=== PATIENT | female | born 1930 | race Caucasian/White ===

== ENCOUNTER 2017-05-12 13:46 | Inpatient (IN) | payer MEDICARE, OTHER ==
--- NOTE | ~2017-05-12 | CN ---
Consultation Report [facility] [address] [place]. [address] NAME: QASIM ARREOLA APRIL : 30 STATUS : ADM IN [facility]#: [id number] AGE: 86 ADM/REG DATE : 05/13/17 MR#: [id number] REPORT SERV DATE: 05/13/17 DICTATED BY: AWAIS PARKER DATE: 05/13/17 REPORT STATUS : Draft TRANSCRIBED BY: MODL DATE: 05/13/17 CARDIOLOGY CONSULTATION DATE OF CONSULTATION: 05/13/2017 REASON FOR CONSULTATION: Sinus bradycardia and congestive heart failure. HISTORY OF PRESENT ILLNESS: Ms. Arreola is an 86-year-old patient, resident of [facility], who presents with complaints of altered mental status. She has a known history of a dilated cardiomyopathy, ejection fraction of approximately 35%. She had a dual chamber ICD placed in the past, but the both the generator and leads were extracted due to a Staph aureus infection. She apparently had problems with confusion over the last 24 hours. She has been admitted over the last few months with many other medical problems including failure to thrive. On her initial assessment in the emergency room, there was question about urinary tract infection as well as some congestive heart failure on her exam in chest x-ray. Her BNP was 693. She received IV Lasix in the emergency room. She was also noted to have rather severe hyponatremia with a sodium of 122. PAST MEDICAL HISTORY: 1. Notable for a dilated cardiomyopathy, ejection fraction approximately 35%. 2. History of an ICD, status post extraction of both the device and the leads secondary to infection with MRSA. 3. Some underlying dementia. CURRENT MEDICINES: Aspirin, Valium, Prozac, levothyroxine, Altace, Requip, tramadol. FAMILY HISTORY: Negative for premature coronary artery disease or sudden cardiac . SOCIAL HISTORY: Negative tobacco or alcohol. REVIEW OF SYSTEMS: As noted above. All other systems reviewed and negative. PHYSICAL EXAMINATION: VITAL SIGNS: Blood pressure currently of 126/64, pulse is 50, respirations 16, O2 saturation 98% on 2 L. GENERAL: Well developed, well nourished. HEENT: No icterus. Good dentition. NECK: Supple. No masses or thyromegaly LUNGS: Breathing comfortably. No rales or wheezes. COR: Normal S1, S2. No S3 or S4. No murmurs, clicks, rubs. No JVD ABD: Soft, nondistended, nontender, no hepatosplenomegaly. EXT: No clubbing, cyanosis or edema. Peripheral pulses 2+/=bilaterally. SKIN: Warm and dry. No visible lesions. Consultation Report [facility] [address] [place] [place] [id number] NAME: QASIM ARREOLA APRIL : 30 STATUS : ADM IN [facility]#: [id number] AGE: 86 ADM/REG DATE : 05/13/17 MR#: [id number] REPORT SERV DATE: 05/13/17 DICTATED BY: AWAIS PARKER DATE: 05/13/17 REPORT STATUS : Draft TRANSCRIBED BY: OLGA DATE: 05/13/17 MS: Chest wall without deformity, no obvious clavicular fractures. NEURO/PSYCH: Oriented X3. No anxiety or depression. IMAGING PROCEDURE: EKG shows sinus rhythm and sinus bradycardia, heart rate 50 beats per minute. First-degree AV block with MO interval of approximately 400 milliseconds. QRS and QT intervals within normal limits. No evidence for ischemia or infarction. LABORATORY VALUES: White count is 9.1, hematocrit 37, platelet count 158. Sodium of 122, potassium 5.3, creatinine is 0.54. Urine was tested, white blood cells in the urine are greater than 182, large leukocyte esterase, positive. BNP was 693. Chest x-ray shows mild pulmonary vascular congestion, very enlarged cardiac silhouette. IMPRESSION: The patient likely has multiple reasons for change in mental status. These may include severe urinary tract infection along with hyponatremia. We should also check thyroid function studies given that she is on medications for hypothyroidism and she does have underlying sinus bradycardia. Heart rate is approximately 50 beats per minute and also evidence for conduction system disease with a profound first-degree AV block. She has already had a defibrillator, which was infected. I would be concerned about reimplantation of a pacing system at this point in time especially given urinary tract infection as well as her underlying comorbidities. If absolutely necessary, we could consider this. In terms of treating hyponatremia, I would recommend fluid restriction. She was given a dose of diuretic in the emergency room and we will give her further intravenous loop diuretic doses. We could also consider use of a collecting duct inhibitor to give more free water excretion and raise sodium. We will repeat her BMP tomorrow after she has received these IV diuretic doses and recheck the level of hyponatremia. GS/MODL Awais Parker M.D. / [id number] CC: Jody Duggan M.D.
--- NOTE | ~2017-05-12 | DS ---
Discharge Summary [facility] [address] [place]. [address] NAME: QASIM ARREOLA APRIL : 30 STATUS : DIS IN PAT#: [id number] AGE: 86 ADM/REG DATE : 05/13/17 MR#: [id number] REPORT SERV DATE: 06/02/17 DICTATED BY: NORMA TILLMAN DATE: 06/01/17 REPORT STATUS : Draft TRANSCRIBED BY: OLGA DATE: 06/01/17 Data Collection from hospitalization DISCHARGE DIAGNOSES: 1. Proteus mirabilis urinary tract infection. 2. Hyponatremia - likely chronic. 3. Congestive heart failure - systolic. 4. Bradycardia - mild. 5. Debility with generalized weakness. 6. Hypothyroidism. 7. Chronic pain syndrome - left shoulder pain. 8. Type 2 diabetes. 9. Hypertension. 10.History of transient ischemic attack. 11.Cardiomegaly with ejection fraction 35%. 12.Osteoarthritis. 13.History of defibrillator placement, status post removal. 14.Anxiety and depression. 15.Failure to thrive. 16.Anemia secondary to chronic disease. CONSULTATIONS: Grupo Kidd M.D. PROCEDURES PERFORMED: None. DISCHARGE MEDICATIONS: Aspirin 81 mg daily, Tradjenta 5 mg daily, Os-Noah plus D 500 mg at bedtime, vitamin D3 at 2000 units on Mondays and , Colace 100 mg twice a day, ferrous sulfate 325 mg twice a day, Prozac 10 mg daily, Lasix 40 mg daily, Synthroid 100 mcg before breakfast/75 mcg before breakfast, Cytomel 5 mcg twice a day, multivitamins one tablet daily, Prilosec 20 mg twice a day, MiraLAX powder one packet daily, potassium chloride SR 20 mEq daily, Altace 2.5 mg every 48 hours, Requip 0.5 mg at bedtime, acidophilus one tablet daily, Ultram 50 mg every 8 hours as needed, Valium 2 mg every four hours as needed, Tylenol 650 mg every six hours as needed, and Biofreeze 1 application topically three times a day as needed. CONDITION ON DISCHARGE: Stable. DISPOSITION: The patient was discharged to [facility] on a low- sodium diet with 1500-mL fluid restriction and activities as instructed. HOSPITAL COURSE: This is an 86-year-old female who is a resident of [facility]. She was transferred to the [facility] Emergency Room with complaints of low sodium, low heart rate, generalized weakness, altered mental status, and poor appetite. She was very weak but was able to answer simple questions. She did fall asleep easily. The patient had had progressive weakness over the past two to three weeks. She was admitted to the hospital at this time for further evaluation and treatment. Upon admission, chest x-ray had revealed cardiomegaly, shallow inspiration, no acute Discharge Summary [place] [id number] [place] [address] NAME: QASIM ARREOLA APRIL : 30 STATUS : DIS IN PAT#: [id number] AGE: 86 ADM/REG DATE : 05/13/17 MR#: [id number] REPORT SERV DATE: 06/02/17 DICTATED BY: NORMA TILLMAN DATE: 06/01/17 REPORT STATUS : Draft TRANSCRIBED BY: OLGA DATE: 06/01/17 cardiopulmonary abnormality. Repeat chest x-ray revealed interval development of band-like atelectasis extending from the right hilum and atelectasis/infiltrate and/or pleural effusion at the lung bases. She was felt to have pyuria. IV Rocephin was continued. Her urinalysis was positive. Urine culture was pending. Admission white blood cell count was within normal limits. Scheduled tramadol would be held if this was contributing to her weakness. It was felt that her altered mental status and generalized weakness were likely multifactorial. Admission BNP was elevated. We would avoid overdiuresis. Potassium improved. Electrolyte protocol was initiated. Protonix was continued. Lovenox was started for DVT prophylaxis. TSH was going to be checked. The patient was seen by Dr. Grupo Kidd regarding sinus bradycardia and congestive heart failure. She had rather severe hyponatremia with sodium level of 122. She has a history of dilated cardiomyopathy with ejection fraction of approximately 35%. She has had a dual-chamber ICD placed in the past, but the generator and leads were extracted due to Staph aureus infection. EKG revealed sinus rhythm and sinus bradycardia. Heart rate was 50 beats per minute. There was a first- degree AV block with NM interval of approximately 400 milliseconds. QRS and QT intervals were within normal limits. There was no evidence for ischemia or infarction. Chest x-ray showed mild pulmonary vascular congestion and very enlarged cardiac silhouette. It was felt that the patient likely had multiple reasons for change in mental status. These would include severe urinary tract infection along with hyponatremia. Thyroid function studies would be checked. She does have underlying sinus bradycardia. Her heart rate was approximately 50 beats per minute and also there was evidence for conduction system disease with profound first-degree AV block. There would be concern about reimplantation of the pacing system at this point in time especially given the urinary tract infection as well as her underlying comorbidities. If absolutely necessary, we could consider this. Fluid restriction was recommended due to her hyponatremia. She was given a dose of diuretic in the emergency room. She would be given further intravenous loop diuretic doses. We would also consider use of a collecting duct inhibitor to give more free water excretion and raise sodium. A repeat BMP would be obtained the following day after she received IV diuretic doses and after we have rechecked the level of hyponatremia. The following day, she looked better. She still felt weak. Her lungs were clear. Sodium and fluid restriction continued as well as IV diuresis. The patient's urine culture was positive for Proteus. DVT prophylaxis continued. IV Bumex was continued. On 05/15/2017, labs were stable. Her lungs were clear. She had a normal respiratory effort. Rocephin was continued. She had no nausea or vomiting. She did not have much of an appetite. She did have some leg cramping. She had no edema. A trial of tolvaptan was going to be provided. Ramipril was continued. Beta-ania was held. On 05/16/2017, she did complain of leg cramps after lunch for most of the day. She had no edema. Diuresis was decreased with Bumex. A dose of tolvaptan was given. Bradycardia had resolved. Beta-ania remained on hold. Her appetite was poor. We were going to try low-dose steroids. On 05/17/2017, she was feeling better. Her lungs were clear. She had no edema. Her congestive heart failure was improving. Her mental status seemed to be improving as well. IV diuresis continued. She was evaluated by Physical Therapy. She continued to progress. Discharge planning was performed. She was eating better. Sodium level was now 129. A dose of Zaroxolyn was given, diuresis continued. On 05/19/2017, she had no new complaints. Her lungs remained clear. Her sodium level was drifting back down, she was asymptomatic. This had occurred despite adequate diuresis and fluid restriction. IV Bumex was stopped. Lasix Discharge Summary [place] [address] [place]. [address] NAME: QASIM ARREOLA APRIL : 30 STATUS : DIS IN PAT#: [id number] AGE: 86 ADM/REG DATE : 05/13/17 MR#: [id number] REPORT SERV DATE: 06/02/17 DICTATED BY: NORMA TILLMAN DATE: 06/01/17 REPORT STATUS : Draft TRANSCRIBED BY: OLGA DATE: 06/01/17 was started. KCl was being given. A pacemaker was not recommended at this time. She did have a bowel movement. Discharge instructions had been given. Due to her improved and stable condition, she was discharged to [facility] with the above-stated instructions. Information collected by: Olya Lawrence I submit the above information as my discharge summary. TG/OLGA Norma Tillman M.D. / [id number] CC: Jody Perry M.D. [facility]
--- NOTE | ~2017-05-12 | HP ---
History And Physical [address] [place]. [address] NAME: QASIM ARREOLA APRIL : 30 STATUS : ADM IN [facility]#: [id number] AGE: 86 ADM/REG DATE : 05/13/17 MR#: [id number] REPORT SERV DATE: 05/13/17 DICTATED BY: NORMA TILLMAN DATE: 05/13/17 REPORT STATUS : Draft TRANSCRIBED BY: MODRonnie DATE: 05/13/17 DATE OF ADMISSION: 05/12/2017 CHIEF COMPLAINT: Low heart rate, low sodium, generalized weakness, and altered mental status. HISTORY OF PRESENT ILLNESS: The patient is an 86-year-old elderly female, who is a resident of [facility], who was transferred to [facility] ER for complaint of low sodium, low heart rate, generalized weakness, altered mental status, and poor appetite. The patient is very weak, able to answer simple question, but easily falls asleep; therefore, most information obtained from the patient's daughter, who is at bedside to answer question regarding family, social, and medical history. Also, reviewed records in [facility] ER as well as inpatient hospitalization records in 11/2016. The patient's daughter reports the patient noted to have had progressive weakness in the last two to three weeks. ALLERGIES: SULFA. CODE STATUS: Full code. PAST MEDICAL HISTORY: To include: 1. History of TIA. 2. Hypertension. 3. Cardiomegaly with EF of 35%/systolic congestive heart failure. 4. Osteoarthritis. 5. Hypothyroidism. 6. Type 2 diabetes. 7. Bacteremia with MRSA infection. 8. Defibrillator, which was subsequently removed. 9. Left hip replacement with infected hardware. 10.Generalized weakness/debility. 11.Anxiety and depression. 12.Failure to thrive. 13.Anemia secondary to chronic disease. PAST SURGICAL HISTORY: 1. Bilateral hip replacement by Dr. Rivero at age 80, two years apart secondary to fall. 2. Right knee replacement. 3. Defibrillator placement around 2001 and subsequently removed in 2013 secondary to MRSA infection. 4. Cervical laminectomy on 12/02/[address] Tran. SOCIAL HISTORY: No history of smoking, alcohol, or illicit drug use. 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 She is currently a resident of [facility] History And Physical [address] [place]. [address] NAME: QASIM ARREOLA APRIL : 30 STATUS : ADM IN PAT#: [id number] AGE: 86 ADM/REG DATE : 05/13/17 MR#: [id number] REPORT SERV DATE: 05/13/17 DICTATED BY: NORMA TILLMAN DATE: 05/13/17 REPORT STATUS : Draft TRANSCRIBED BY: OLGA DATE: 05/13/17 since 02/2017. Prior to that, she was a resident of [facility] since December. FAMILY HISTORY: Positive for hypertension and congestive heart failure. REVIEW OF SYSTEMS: The patient denies any complaint of swallowing or hearing. Has had generalized weakness. Complained of overall weakness and poor appetite. No complaint of irregular beat or chest pain. Has had slow heart rate in the last two weeks per daughter. The patient is an established patient of Dr. Nayak, but has not seen Dr. Nayak in the last year. The patient's daughter reports had canceled the appointment with Dr. Nayak and has not rescheduled. Has had a history of congestive heart failure. Had defibrillator placed, but was removed for infection in 2013 and was not replaced. The patient with likely history of constipation. Daughter reports that MiraLax scheduled was added recently at [facility]. The patient denies any nausea or vomiting. The patient is incontinent with urine. Denies any pain or burning when urinates. Daughter thinks that the patient has had a UTI recently. The patient's daughter reports the patient was ambulating some with a walker while at [facility], but at [place], she was only able to stand up and has not walked with worsening weakness. The patient with history of hypothyroidism. The patient's daughter reports that the patient's thyroid in the last two weeks had been increased and decreased at [place], but unsure of last thyroid level. The patient with history of anxiety and depression. Has had history of TIA in the past. The patient remains on a daily aspirin. History of diabetes, was on oral agent, but continued to be on regular diet. PHYSICAL EXAMINATION: VITAL SIGNS: 149/65; temperature of 96.8; heart rate of 48, range of 45 to 52; respiratory rate 18; sat O2 of 99% with nasal cannula. Weight of 59.87 kg, BMI of 22.7. I's and O's of 480/2000. GENERAL: The patient is an elderly female, very lethargic, but arousable and able to answer simple question. She is oriented to self and place, in no acute distress noted. HEENT: Oral mucosa, nasal cannula in use. Eyes, PERRL, nonicteric bilaterally. NECK: No pain on palpation. Moves neck without any pain. Limited range of motion on extension. CHEST: No deformity noted. LUNGS: Clear to auscultation bilaterally with symmetric expansion, but diminished breath sounds in bilateral lower bases. CV: Bradycardic. No murmurs noted. ABDOMEN: Soft and nontender. Bowel sounds x4 quadrants. : Sepulveda in use, clear yellow urine in bag with good urine output. History And Physical [address] [place]. [address] NAME: QASIM ARREOLA APRIL : 30 STATUS : ADM IN [facility]#: [id number] AGE: 86 ADM/REG DATE : 05/13/17 MR#: [id number] REPORT SERV DATE: 05/13/17 DICTATED BY: NORMA TILLMAN DATE: 05/13/17 REPORT STATUS : Draft TRANSCRIBED BY: OLGA DATE: 05/13/17 EXTREMITIES: No edema noted. Noted limited bilateral upper and lower extremity range of motion due to generalized weakness and generalized muscle atrophy. 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 Noted arthritic changes. Noted hyperpigmentation and old ecchymosis on bilateral lower extremity and bilateral upper extremity. Gait not assessed. LABORATORY STUDY: Troponin 0.03 on admission and 0.03 at 0625 hours today. BNP on admission was 1750.9, a repeat this morning was 1619.0. Sodium on 05/12 was 122, potassium 5.3, chloride 88, CO2 of 30, BUN 19, creatinine 0.54, glucose of 107, GFR of 85. WBC 9.1, hemoglobin 10.9, hematocrit 32.7. PT 16.2, INR 1.3, PTT 31.2. Platelet of 158. Magnesium of 1.8. AST 18, bilirubin 0.5, total protein 5.6, ALT 25, albumin 3.1, alkaline phosphatase 100. Repeat BMP this morning was with sodium 125, potassium 4.2, chloride 87, CO2 of 31, BUN 18, creatinine of 0.59, glucose of 80, GFR of 83. Chest x-ray on admission on 05/12/2017, cardiomegaly, shallow inspiration, no acute cardiopulmonary abnormality. A repeat of chest x-ray on 05/13/2017 revealed interval development of band-like atelectasis extending from right hilum and atelectasis/infiltrate and/or pleural effusion on lung base. IMPRESSION: 1. Pyuria. 2. Altered mental status. 3. Systolic congestive heart failure with acute exacerbation. 4. Electrolyte imbalance. 5. Bradycardia, sinus with first-degree AV block. 6. Generalized weakness. 7. Failure to thrive. 8. Hypothyroidism. 9. Hypertension, primary, controlled. 10.Anxiety and depression. 11.Osteoarthritis. PLAN: 1. We will continue Rocephin IV, which was started in the ER for treatment of possible UTI with urinalysis positive. Urine culture pending at this time, we will continue to follow. Admission WBC was within normal limits. We will repeat labs in a.m. and monitor vital signs. The patient is currently hemodynamically stable, but at risk for sepsis. The patient's Sepulveda was placed in the ER on admission. We will continue Sepulveda at this time to monitor urine output. 2. The patient with altered mental status, likely more due to generalized weakness. She is oriented to self and place. We will hold off scheduled tramadol if this is contributing to her weakness. Likely, her altered mental status and generalized weakness are multifactorial. We will continue to monitor mental status. The patient is at risk for worsening neuro status. 3. The patient with history of systolic congestive heart failure with last echocardiogram done while on admission in 11/2016 revealed EF of 35%. Her admission BNP is elevated, slightly improved this morning to 1619 with Lasix given IV q.12 hours. We will continue to monitor BNP and weight, avoid overdiuresing. However, given the patient's failure to thrive and poor p.o. intake, we will allow the patient to have boost for protein supplement. We will consult Cardiology for assistance given the patient also History And Physical [address] [place] [place]. [address] NAME: QASIM ARREOLA APRIL : 30 STATUS : ADM IN PAT#: [id number] AGE: 86 ADM/REG DATE : 05/13/17 MR#: [id number] REPORT SERV DATE: 05/13/17 DICTATED BY: NORMA TILLMAN DATE: 05/13/17 REPORT STATUS : Draft TRANSCRIBED BY: OLGA DATE: 05/13/17 with bradycardia contributing a lot to the patient's generalized weakness. The patient is at risk for worsening acute exacerbation and arrhythmia. We will continue IV Lasix at this time. The patient's potassium has improved. We will replace magnesium and monitor labs in a.m. We will initiate electrolyte protocol. The patient is at risk for worsening cardiac arrhythmia. 4. Once the patient's cardiac issue has stabilized, we will refer the patient to PT for evaluation and treatment. Continue frequent positional changes. Continue current Protonix via p.o. and place on DVT prophylaxis with Lovenox. The patient is at risk for GI stress ulcer, DVT, and further skin breakdown. 5. The patient with history of thyroidism with daughter reporting recent adjustment on replacement. We will check TSH in a.m. to see if this is contributing to the patient's generalized weakness, altered mental status, and arrhythmia. The patient is at risk for worsening arrhythmia and generalized weakness. 6. We will continue current bowel regimen given the history of constipation and monitor BM. The patient is at risk for bowel obstruction given decreased mobility and polypharmacy. 7. Addressed code status with the patient's daughter, who desires the patient to remain a full code. Transfer POLST form in chart. We will ensure to complete inpatient POLST form. We will place the patient on inpatient status as of today given inpatient risk of deterioration. DICTATED BY: Charissa Rudolph NP CLP/MODL Norma Tillman M.D. / [id number] CC: Jody Duggan M.D.
[~2017-05-12 13:46] MED LIST: ACCUNEB INH; ACET500CAP PO; ALTA125 PO; ALTA2.5 PO; ALTA5 PO; ALTACE PO; AMARYL1 MG PO; APRES25 PO; ASAB PO; AT25; AT25 PO; ATARAX50B PO; BUM1 PO; CALTRA600D; CALTRAT600 PO; CENTRUM TAB1 TAB PO; CO Q-10100 MG PO; COQ10100 MG OR; COQ10100 MG PO; COREG12 PO; COREG3 PO; COREG6 PO; CYTO5 PO; DEMA10T PO; DEMA20 PO; DEMADEX5 MG PO; DORYX100 MG PO; EZFE 200200 MG PO; FERREX 150150 MG PO; FISH-EPA1000 MG PO; FLORASTOR250 MG PO; FOSAMAX70 MG PO; HALF81 PO; HUMALOG SC; INSTA-GLUCOSE GEL PO; IRON325 MG PO; ISOPTINSR PO; JANUVIA100 MG PO; JANUVIA50 PO; K-TABS10 MEQ PO; KLOR-CON 1010 MEQ PO; KLOR-CON M2020 MEQ PO; L40 PO; LEVOTHYROXIN100 MCG PO; LEVOTHYROXIN88 MCG PO; LOVENOX40 SC; MIRALAXPKT PO; MULTIPLE VIT PO; NORCO1 TA1 PO; OS500+D PO; PEP20 PO; PRAVACHOL40 MG PO; PREMARIN PO; PRILO PO; PROVENTSOL INH; PROZ10 PO; SENTAB PO; SPIRO50 PO; SYN.025B PO; SYN88 PO; T PO; THERGRANM PO; TRADJENTA5 MG PO; V120 PO; VANCO1P IV; VITAMIN D1000 UNI1 PO; VITAMIN D31000 UNIT PO; VITAMIN E; [UNRECOGNIZED DRUG - CODE] PO
[2017-05-12 15:17] LABS: BASOPHILS 0.2 %; BASOPHILS ABSOLUTE 0.02 10/3/uL (0.0-0.16); EOSINOPHILS 2.7 %; EOSINOPHILS ABSOLUTE 0.24 10/3/uL (0.0-0.53); ER CBC TAT 0 Hrs 03 Mins; HEMATOCRIT 32.7 % (36.0-48.0); HEMOGLOBIN 10.9 g/dL (12.0-16.0); IMMATURE GRANULOCYTES 0.2 %; IMMATURE GRANULOCYTES ABSOLUTE 0.02 10/3/uL (0.0-0.11); LYMPHOCYTES 6.5 %; LYMPHOCYTES ABSOLUTE 0.59 10/3/uL (0.67-4.30); MANUAL DIFF NO %; MEAN CORPUS HGB CONC 33.3 g/dL (32.0-36.0); MEAN CORPUSCULAR HEMOGLOB 29.2 pg (26.0-34.0); MEAN CORPUSCULAR VOLUME 87.7 fL (80-100); MEAN PLATELET VOLUME 8.6 fL (9.2-13.0); MONOCYTES 7.4 %; MONOCYTES ABSOLUTE 0.67 10/3/uL (0.21-1.20); NEUTROPHILS ABSOLUTE 7.51 10/3/uL (2.02-8.40); PLATELET COUNT 158 10/3/uL (150-400); RBC DISTRIBUTION WIDTH 16.9 % (12.0-16.0); RED CELL COUNT 3.73 10/6/uL (4.0-5.6); WHITE BLOOD CELLS 9.1 10/3/uL (4.5-10.5)
[2017-05-12 15:27] LABS: INTERNATIONAL NORMAL RATI 1.3 UNITS (-); PARTIAL THROMBO TIME 31.2 SEC (22.5-37.2); PROTIME (NOT ORD) 16.2 SEC (12.0-14.5)
[2017-05-12 15:36] LABS: BUN (BLOOD UREA NITROGEN) 19 MG/DL (6-23); CALCIUM, SERUM 8.6 MG/DL (8.5-10.4); CHEST PAIN PROFILE TAT 0 Hrs 22 Mins; CHLORIDE, SERUM 88 MMOL/L (96-112); CO2 (CARBON DIOXIDE) 30 MMOL/L (24-34); CREATININE 0.54 MG/DL (0.55-1.02); GFR AFRICAN AMERICAN 99 ML/MIN (>=60); GFR NON AFRICAN AMERICAN 85 ML/MIN (>=60); GLUCOSE, SERUM 107 MG/DL (60-99); MYOGLOBIN, SERUM 47 NG/ML (0-85); POTASSIUM, SERUM 5.3 MMOL/L (3.5-5.3); SODIUM, SERUM 122 MMOL/L (135-148); TROPONIN I 0.03 NG/ML (<0.05)
[2017-05-12 16:23] LABS: FOLATE 7.5 NG/ML (>5.2); IRON BINDING CAPACITY 245 MCG/DL (225-410); IRON, SERUM 38 MCG/DL (35-150)
[2017-05-12 16:39] LABS: ASCORBIC ACID (UR NOT ORDER) NEG (NEG); BILIRUBIN, URINE NEGATIVE (NEG); ER URINALYSIS TAT 0 Hrs 12 Mins; KETONE, URINE NEGATIVE (NEG); LEUKOCYTE ESTERASE(NOT OR LARGE (NEG)
[2017-05-12 16:40] LABS: NITRITE (URINE) POS (NEG); WBC (NOT ORDERED) (RFLEX) > 182 (0-5)
[2017-05-12] MEDS ORDERED: PRILO PO (17:19)
[2017-05-12] MEDS ORDERED: REQUIP5 PO (17:20)
[2017-05-12] MEDS ORDERED: OS500+D PO (17:22)
[2017-05-12] MEDS ORDERED: ULTRAM50 PO ×2 (17:23→17:38)
[2017-05-12] MEDS ORDERED: LEVOTHYROXIN150 MCG PO (17:23)
[2017-05-12] MEDS ORDERED: CYTO5 PO (17:24)
[2017-05-12] MEDS ORDERED: DSS PO (17:24)
[2017-05-12] MEDS ORDERED: FERROUS SULF325 M1 PO (17:26)
[2017-05-12] MEDS ORDERED: ASAB PO (17:27)
[2017-05-12] MEDS ORDERED: SODCLTAB PO (17:27)
[2017-05-12] MEDS ORDERED: MULTIVITAMI1 PO (17:28)
[2017-05-12] MEDS ORDERED: VITAMIN D31000 UNIT PO (17:28)
[2017-05-12] MEDS ORDERED: ALTA2.5 PO (17:29)
[2017-05-12] MEDS ORDERED: ACIDOPHILU2 PO (17:30)
[2017-05-12] MEDS ORDERED: MIRALAX POWDER1 PKT PO (17:34)
[2017-05-12] MEDS ORDERED: TRADJENTA5 MG PO (17:34)
[2017-05-12] MEDS ORDERED: PROZ10 PO (17:35)
[2017-05-12] MEDS ORDERED: 8 HOUR650 MG PO (17:37)
[2017-05-12] MEDS ORDERED: V2 PO (17:37)
[2017-05-12] MEDS ORDERED: BIOFREEZE GEL TOP (17:39)
[2017-05-13 07:16] LABS: A/G RATIO 1.2 (0.7-1.9); ALBUMIN 3.1 G/DL (3.5-5.0); ALKALINE PHOSPHATASE 100 U/L (45-117); BUN (BLOOD UREA NITROGEN) 18 MG/DL (6-23); CALCIUM, SERUM 8.4 MG/DL (8.5-10.4); CHLORIDE, SERUM 87 MMOL/L (96-112); CK-MB 2.1 NG/ML; CO2 (CARBON DIOXIDE) 31 MMOL/L (24-34); CPK 32 U/L (0-200); CREATININE 0.59 MG/DL (0.55-1.02); GFR AFRICAN AMERICAN 96 ML/MIN (>=60); GFR NON AFRICAN AMERICAN 83 ML/MIN (>=60); GLOBULIN 2.5 G/DL (2.5-4.1); GLUCOSE, SERUM 80 MG/DL (60-99); POTASSIUM, SERUM 4.2 MMOL/L (3.5-5.3); SGOT(AST) 18 U/L (5-40); SGPT(ALT) 25 U/L (5-65); SODIUM, SERUM 125 MMOL/L (135-148); TOTAL BILIRUBIN 0.5 MG/DL (0-1.2); TOTAL PROTEIN 5.6 G/DL (6.0-8.5); TROPONIN I 0.03 NG/ML (<0.05)
[2017-05-14 05:25] LABS: BASOPHILS ABSOLUTE 0.05 10/3/uL (0.0-0.16); EOSINOPHILS 5.6 %; EOSINOPHILS ABSOLUTE 0.28 10/3/uL (0.0-0.53); HEMATOCRIT 30.5 % (36.0-48.0); HEMOGLOBIN 10.3 g/dL (12.0-16.0); IMMATURE GRANULOCYTES 0.4 %; IMMATURE GRANULOCYTES ABSOLUTE 0.02 10/3/uL (0.0-0.11); LYMPHOCYTES 15.4 %; LYMPHOCYTES ABSOLUTE 0.77 10/3/uL (0.67-4.30); MEAN CORPUS HGB CONC 33.8 g/dL (32.0-36.0); MEAN CORPUSCULAR HEMOGLOB 29.3 pg (26.0-34.0); MEAN CORPUSCULAR VOLUME 86.9 fL (80-100); MEAN PLATELET VOLUME 8.5 fL (9.2-13.0); MONOCYTES 10.4 %; MONOCYTES ABSOLUTE 0.52 10/3/uL (0.21-1.20); NEUTROPHILS 67.2 %; NEUTROPHILS ABSOLUTE 3.35 10/3/uL (2.02-8.40); PLATELET COUNT 144 10/3/uL (150-400); RBC DISTRIBUTION WIDTH 16.4 % (12.0-16.0); RED CELL COUNT 3.51 10/6/uL (4.0-5.6)
[2017-05-14 05:32] LABS: MANUAL DIFF NO %
[2017-05-14 05:49] LABS: BUN (BLOOD UREA NITROGEN) 15 MG/DL (6-23); CALCIUM, SERUM 7.9 MG/DL (8.5-10.4); CHLORIDE, SERUM 85 MMOL/L (96-112); CO2 (CARBON DIOXIDE) 33 MMOL/L (24-34); CREATININE 0.65 MG/DL (0.55-1.02); GFR AFRICAN AMERICAN 93 ML/MIN (>=60); GFR NON AFRICAN AMERICAN 80 ML/MIN (>=60); GLUCOSE, SERUM 82 MG/DL (60-99); POTASSIUM, SERUM 3.6 MMOL/L (3.5-5.3); PREALBUMIN 11.5 MG/DL (17.0-43.0); SODIUM, SERUM 124 MMOL/L (135-148)
[2017-05-14 05:50] LABS: PHOSPHORUS, SERUM 3.7 MG/DL (2.5-4.5)
[2017-05-15 05:36] LABS: BUN (BLOOD UREA NITROGEN) 15 MG/DL (6-23); CALCIUM, SERUM 8.4 MG/DL (8.5-10.4); CHLORIDE, SERUM 83 MMOL/L (96-112); CO2 (CARBON DIOXIDE) 35 MMOL/L (24-34); CREATININE 0.69 MG/DL (0.55-1.02); GFR AFRICAN AMERICAN 91 ML/MIN (>=60); GFR NON AFRICAN AMERICAN 79 ML/MIN (>=60); GLUCOSE, SERUM 96 MG/DL (60-99); POTASSIUM, SERUM 3.9 MMOL/L (3.5-5.3); SODIUM, SERUM 124 MMOL/L (135-148)
[2017-05-16 05:47] LABS: BUN (BLOOD UREA NITROGEN) 12 MG/DL (6-23); CALCIUM, SERUM 9.7 MG/DL (8.5-10.4); CHLORIDE, SERUM 88 MMOL/L (96-112); CO2 (CARBON DIOXIDE) 35 MMOL/L (24-34); CREATININE 0.62 MG/DL (0.55-1.02); GFR AFRICAN AMERICAN 95 ML/MIN (>=60); GFR NON AFRICAN AMERICAN 82 ML/MIN (>=60); GLUCOSE, SERUM 97 MG/DL (60-99); POTASSIUM, SERUM 4.3 MMOL/L (3.5-5.3); SODIUM, SERUM 132 MMOL/L (135-148)
[2017-05-17 07:21] LABS: BUN (BLOOD UREA NITROGEN) 12 MG/DL (6-23); CALCIUM, SERUM 9.9 MG/DL (8.5-10.4); CHLORIDE, SERUM 89 MMOL/L (96-112); CO2 (CARBON DIOXIDE) 38 MMOL/L (24-34); CREATININE 0.68 MG/DL (0.55-1.02); GFR AFRICAN AMERICAN 92 ML/MIN (>=60); GFR NON AFRICAN AMERICAN 79 ML/MIN (>=60); GLUCOSE, SERUM 100 MG/DL (60-99); POTASSIUM, SERUM 4.5 MMOL/L (3.5-5.3); SODIUM, SERUM 133 MMOL/L (135-148)
[2017-05-18 04:18] LABS: BASOPHILS 0.7 %; BASOPHILS ABSOLUTE 0.04 10/3/uL (0.0-0.16); EOSINOPHILS 6.2 %; EOSINOPHILS ABSOLUTE 0.36 10/3/uL (0.0-0.53); HEMOGLOBIN 11.3 g/dL (12.0-16.0); IMMATURE GRANULOCYTES 0.3 %; IMMATURE GRANULOCYTES ABSOLUTE 0.02 10/3/uL (0.0-0.11); LYMPHOCYTES 16.4 %; LYMPHOCYTES ABSOLUTE 0.96 10/3/uL (0.67-4.30); MEAN CORPUSCULAR HEMOGLOB 29.1 pg (26.0-34.0); MEAN PLATELET VOLUME 8.4 fL (9.2-13.0); MONOCYTES 10.3 %; NEUTROPHILS 66.1 %; NEUTROPHILS ABSOLUTE 3.86 10/3/uL (2.02-8.40); PLATELET COUNT 139 10/3/uL (150-400); RBC DISTRIBUTION WIDTH 16.3 % (12.0-16.0); RED CELL COUNT 3.88 10/6/uL (4.0-5.6); WHITE BLOOD CELLS 5.8 10/3/uL (4.5-10.5)
[2017-05-18 04:19] LABS: HEMATOCRIT 35.4 % (36.0-48.0); MANUAL DIFF NO %; MEAN CORPUS HGB CONC 31.9 g/dL (32.0-36.0); MEAN CORPUSCULAR VOLUME 91.2 fL (80-100)
[2017-05-18 04:32] LABS: ALBUMIN 3.2 G/DL (3.5-5.0); CALCIUM, SERUM 9.3 MG/DL (8.5-10.4); CHLORIDE, SERUM 88 MMOL/L (96-112); CO2 (CARBON DIOXIDE) 37 MMOL/L (24-34); CREATININE 0.72 MG/DL (0.55-1.02); GFR AFRICAN AMERICAN 88 ML/MIN (>=60); GFR NON AFRICAN AMERICAN 76 ML/MIN (>=60); GLUCOSE, SERUM 109 MG/DL (60-99); PHOSPHORUS, SERUM 3.4 MG/DL (2.5-4.5); POTASSIUM, SERUM 4.7 MMOL/L (3.5-5.3); SODIUM, SERUM 129 MMOL/L (135-148)
[2017-05-18 04:35] LABS: BUN (BLOOD UREA NITROGEN) 19 MG/DL (6-23)
[2017-05-19 05:07] LABS: BUN (BLOOD UREA NITROGEN) 18 MG/DL (6-23); CALCIUM, SERUM 9.2 MG/DL (8.5-10.4); CHLORIDE, SERUM 83 MMOL/L (96-112); CO2 (CARBON DIOXIDE) 35 MMOL/L (24-34); CREATININE 0.53 MG/DL (0.55-1.02); GFR AFRICAN AMERICAN 100 ML/MIN (>=60); GFR NON AFRICAN AMERICAN 86 ML/MIN (>=60); GLUCOSE, SERUM 110 MG/DL (60-99); SODIUM, SERUM 125 MMOL/L (135-148)
== END 2017-05-19 18:01 | DRG 291 ==
LOC: ER 13:46 → 7NO 18:45
PROVIDERS: Emergency Medicine; Family Medicine; Internal Medicine; Internal Medicine Cardiovascular Disease; Nurse Practitioner Family
DX: I11.0 Hypertensive heart disease with heart failure (principal); G93.41 Metabolic encephalopathy; I42.0 Dilated cardiomyopathy; F03.90 Unspecified dementia, unspecified severity, without behavioral disturbance, psychotic disturbance, mood disturbance, and anxiety; N39.0 Urinary tract infection, site not specified; E87.1 Hypo-osmolality and hyponatremia; E44.1 Mild protein-calorie malnutrition; E11.9 Type 2 diabetes mellitus without complications; B96.4 Proteus (mirabilis) (morganii) as the cause of diseases classified elsewhere; I50.23 Acute on chronic systolic (congestive) heart failure; I44.0 Atrioventricular block, first degree; G89.4 Chronic pain syndrome; R32 Unspecified urinary incontinence; R00.1 Bradycardia, unspecified; R62.7 Adult failure to thrive; E03.9 Hypothyroidism, unspecified; M19.90 Unspecified osteoarthritis, unspecified site; D63.8 Anemia in other chronic diseases classified elsewhere; F41.9 Anxiety disorder, unspecified; K59.00 Constipation, unspecified; F32.9 Major depressive disorder, single episode, unspecified; Z96.643 Presence of artificial hip joint, bilateral; Z86.73 Personal history of transient ischemic attack (TIA), and cerebral infarction without residual deficits; Z87.440 Personal history of urinary (tract) infections; Z86.14 Personal history of Methicillin resistant Staphylococcus aureus infection; Z79.84 Long term (current) use of oral hypoglycemic drugs
CPT/HCPCS: 71010; 73030-LT; 80048; 80053; 80069; 81001; 82550; 82553; 82746; 82962; 83540; 83550; 83735; 83874; 83880; 84100; 84134; 84443; 84484; 85025; 85610; 85730; 87040; 87077; 87086; 87186; 93005; 97163-GP; 99285; A9270-GY; G8978-CL-GP; G8979-CJ-GP; J3475

== ENCOUNTER 2017-08-16 05:30 | Inpatient (IN) | payer MEDICARE, OTHER ==
[~2017-08-16] VITALS: Ht 162.6 cm; Wt 61.7 kg
--- NOTE | ~2017-08-16 | EGD ---
EGD REPORT [facility] [address] [address] NAME: ABI ARREOLA APRIL : 30 STATUS : DIS IN PAT#: [id number] AGE: 87 ADM/REG DATE : 08/16/17 MR#: [id number] REPORT SERV DATE: 08/20/17 DICTATED BY: LYLE AMBROSE DATE: 08/20/17 REPORT STATUS : Draft [facility]ANSCRIBED BY: [facility] DATE: 08/20/17 Endoscopy Center Patient Name: Abi Arreola April Date of : 1930 Attending MD: LYLE AMBROSE MD Procedure Date No Time: 08/17/2017 Procedure: Upper GI endoscopy Indications: Acute post hemorrhagic anemia, Anemia, Melena Medicines: Monitored Anesthesia Care Complications: No immediate complications. Procedure: Pre-Anesthesia Assessment: - ASA Grade Assessment: IV - A patient with severe systemic disease that is a constant threat to life. After obtaining informed consent, the endoscope was passed under direct vision. Throughout the procedure, the patient's blood pressure, pulse, and oxygen saturations were monitored continuously. The GIF [id number] was introduced through the mouth, and advanced to the third part of duodenum. The upper GI endoscopy was accomplished without difficulty. The patient tolerated the procedure well. Findings: The nasopharynx was normal. LA Grade A (one or more mucosal breaks less than 5 mm, not extending between tops of 2 mucosal folds) esophagitis with no bleeding was found at the gastroesophageal junction. Two medium-sized angioectasias with no bleeding were found in the stomach. Coagulation for destruction of remaining portion of lesion using argon plasma at 0.8 liters/minute and 20 shaw was successful. Estimated blood loss was minimal. A single small angioectasia without bleeding was found in the second part of the duodenum. Coagulation for destruction of remaining portion of lesion using argon plasma at 0.5 liters/minute and 20 shaw was successful. Impression: - Normal nasopharynx. - LA Grade A reflux esophagitis. - Two non-bleeding angioectasias in the stomach. Treated with thermal therapy. - A single non-bleeding angioectasia in the duodenum. Treated with thermal therapy. Procedure Code(s): --- Professional --- 60736, Esophagogastroduodenoscopy, flexible, transoral; EGD REPORT [address] [address] NAME: ABI ARREOLA APRIL : 30 STATUS : DIS IN PAT#: [id number] AGE: 87 ADM/REG DATE : 08/16/17 MR#: [id number] REPORT SERV DATE: 08/20/17 DICTATED BY: LYLE AMBROSE DATE: 08/20/17 REPORT STATUS : Draft TRANSCRIBED BY: [facility] DATE: 08/20/17 with ablation of tumor(s), polyp(s), or other lesion(s) (includes pre- and post-dilation and guide wire passage, when performed) Diagnosis Code(s): --- Professional --- K21.0, Gastro-esophageal reflux disease with esophagitis K31.819, Angiodysplasia of stomach and duodenum without bleeding D62, Acute posthemorrhagic anemia D64.9, Anemia, unspecified K92.1, Melena CPT copyright 2013 [employer]. All rights reserved. The codes documented in this report are preliminary and upon geological technical officer review may be revised to meet current compliance requirements. LYLE AMBROSE MD 08/17/2017 5:53 PM This report has been signed electronically. Number of Addenda: 0 Note Initiated On: 08/17/2017 5:21 PM Scope Withdrawal Time 0 hours 0 minutes 0 seconds [address] [place] [place] [address]
--- NOTE | ~2017-08-16 | CN ---
Consultation Report [facility] [address] [facility] [address] [address] NAME: QASIM ARREOLA APRIL : 30 STATUS : ADM IN [facility]#: [id number] AGE: 87 ADM/REG DATE : 08/16/17 MR#: [id number] REPORT SERV DATE: 08/17/17 DICTATED BY: KHOI AMBROSE DATE: 08/17/17 REPORT STATUS : Draft TRANSCRIBED BY: MODL DATE: 08/17/17 CONSULTATION DATE OF CONSULTATION: 08/16/2017 The patient admitted by Dr. Ppee Pham. REASON FOR CONSULTATION: The patient admitted with history of melena and some bloody stool and also significant anemia and I was consulted for the same. HISTORY OF PRESENT ILLNESS: Ms. Arreola is an 87-year-old female, admitted with above history. The patient lives at [facility] and was transferred to [facility] ER for further evaluation of bloody stool, described as black stool, and a decreased H and H. Denies any abdominal pain associated with it. The patient was quite stuporous last night or may be sedated, could not talk to her much, but today she is somewhat talkative, and family is around her also. Denies any abdominal pain and some generalized weakness. The patient had a colonoscopy in the past some time ago; the family does not know exactly. Her H and H dropped down, hemoglobin about 6.4 or so requiring 2 units of blood transfusion. On 08/12/2017, her hemoglobin was 9.4 and hematocrit was 29.5. She has been recently treated for Pseudomonas urinary tract infection and right lower lobe pneumonia. ALLERGIES: THE PATIENT ALLERGIC TO SULFA. THE PATIENT IS DNR. MEDICATIONS: Home medications include albuterol and has inhalations as needed. Aspirin 81 mg daily; calcium with vitamin D of 60 mg p.o. with supper; vitamin D 2000 units tab every morning; Valium 2 mg p.o. every 4 hours as needed; Colace 100 mg twice a day; ferrous sulfate 325 mg p.o. with breakfast and supper; Prozac 10 mg every morning; Lasix 40 mg daily; lactobacillus one capsule every day; Synthroid 175 mcg a day; Tradjenta 5 mg every morning; Cytomel 5 mg twice a day; multivitamins with minerals one tablet every morning; omeprazole 20 mg with breakfast and supper; Oxycodone/APAP 5/325 every 6 hours as needed; Zosyn 4.5 mg IV every 8 hours, which has been stopped on 08/20/2017; MiraLAX powder 17 g p.o. every morning; potassium chloride 20 mEq every morning; Lyrica 75 mg at bedtime; Altace 2.5 mg every 48 hours, Requip 0.5 mg p.o. at bedtime; Demadex 20 mg every morning; Pro-Stat liquid 30 mL p.o. twice a day; and Biofreeze 4% gel as needed. PAST MEDICAL HISTORY: Significant for history of TIA, hypertension, cardiomyopathy with systolic congestive heart failure, osteoarthritis, hypothyroidism, type 2 diabetes, history of MRSA, left hip replacement with infected hardware, generalized weakness, debility, chronic anxiety, depression, failure to thrive, and chronic anemia. PAST SURGICAL HISTORY: Significant for bilateral hip replacement, right knee replacement, defibrillator placement, and subsequently, removed cervical laminectomy. Consultation Report [address] [address] NAME: QASIM ARREOLA APRIL : 30 STATUS : ADM IN [facility]#: [id number] AGE: 87 ADM/REG DATE : 08/16/17 MR#: [id number] REPORT SERV DATE: 08/17/17 DICTATED BY: KHOI AMBROSE DATE: 08/17/17 REPORT STATUS : Draft TRANSCRIBED BY: OLGA DATE: 08/17/17 SOCIAL HISTORY: The patient is currently living in [place] since 02/2017, mainly cared by family including daughter and son and granddaughters. No history of tobacco use, alcohol, or illicit drugs. FAMILY HISTORY: Positive for hypertension and congestive heart failure. REVIEW OF SYSTEMS: Noted from the chart. The patient is somewhat stuporous but able to give some answers. No acute change in vision or hearing. No acute neurological or psychiatric symptoms. Denies any abdominal pain. No nausea, no vomiting. All other systems reviewed as per history. PHYSICAL EXAMINATION: VITAL SIGNS: Blood pressure 121/57, temperature 97.9, pulse 76, and respiration 24. GENERAL: This is an elderly female, in no acute distress. HEENT: No icterus. Pale conjunctivae. NECK: Supple. No JVD. CHEST: Bilateral decreased air flow. HEART: S1-S2 regular rate and rhythm. Systolic murmur noted. ABDOMEN: Soft. Bowel sounds present. Minimum tenderness noted. No guarding. No rebound tenderness. EXTREMITIES: No clubbing, cyanosis, or edema. Some ecchymosis noted. NEUROLOGICAL EXAM: Moving all extremities. Alert and somewhat oriented. PSYCH: Normal affect. LAB: Sodium 146; potassium 3.5; BUN 46, on admission it was 50; creatinine 0.77; and albumin 2.7. Liver enzymes normal. White count 6.0; hemoglobin on admission it was 6.4, after blood transfusion it came up to 9.6 with hematocrit on admission was 21, now is 30. RDW 17.5, platelet 103,000. PT 16.2, INR 1.3. ASSESSMENT: The patient admitted with history of melena and anemia. PLAN: At this time is to resuscitate the patient and evaluate as soon as possible. Discussion with the family was carried on regarding her general conditions and anesthesia, and at some point, son and daughter both agreed to go ahead and do the procedure, then only we proceeded. We will advise further after the procedure. JUSTIN/OLGA Khoi Ambrose M.D. / [id number] Consultation Report [address] [address] NAME: QASIM ARREOLA APRIL : 30 STATUS : ADM IN [facility]#: [id number] AGE: 87 ADM/REG DATE : 08/16/17 MR#: [id number] REPORT SERV DATE: 08/17/17 DICTATED BY: KHOI AMBROSE DATE: 08/17/17 REPORT STATUS : Draft TRANSCRIBED BY: OLGA DATE: 08/17/17 CC: Pepe Pham M.D.
--- NOTE | ~2017-08-16 | HP ---
History And Physical [facility] [address] [place]. [address] NAME: QASIM ARREOLA APRIL : 30 STATUS : ADM IN [facility]#: [id number] AGE: 87 ADM/REG DATE : 08/16/17 MR#: [id number] REPORT SERV DATE: 08/16/17 DICTATED BY: NORMA TILLMAN DATE: 08/16/17 REPORT STATUS : Draft TRANSCRIBED BY: MODRonnie DATE: 08/16/17 DATE OF ADMISSION: 08/16/2017 CHIEF COMPLAINT: Bloody stool. HISTORY OF PRESENT ILLNESS: The patient is an 87-year-old elderly female, who is a resident of [facility], was transferred to [facility] for further evaluation of bloody stool and low hemoglobin and hematocrit. The patient denies any associated symptoms such as weakness, just reports had had one bloody stool last night. She had had the stool the night prior to and it was not positive for blood. The patient denies any other associated symptoms such as fever or generalized weakness. The patient reports that she is currently being treated for infection, which her IV antibiotic was started after her PICC line was placed last Wednesday. The patient's son was at the bedside and confirmed this information. Also called nurse practitioner who was assigned at [facility] and confirmed that the patient had not had any issue with bloody stool. He reports that her last hemoglobin and hematocrit on 08/12/2017, her hemoglobin was 9.4 and hematocrit was 29.5. He did confirm that he is currently treating the patient for Pseudomonas urinary tract infection and right lower lobe pneumonia, which he ordered for PICC line placement on Wednesday and started IV Zosyn with plan for a seven-day therapy. The patient is able to answer simple questions, but most information obtained from reviewing medical records in [facility] as well as confirmation from the patient's son at the bedside regarding past medical history, family history, social history, and surgical history. ALLERGIES: SULFA (UNSURE REACTION). CODE STATUS: DNR limited. HOME MEDICATIONS: Include: 1. Albuterol inhalation one every two hours p.r.n. for shortness of breath/wheezing. 2. Aspirin 81 mg p.o. daily. 3. Calcium with vitamin D tab 600 mg p.o. with supper. 4. Vitamin D 2000 unit tab every morning. 5. Valium 2 mg p.o. every four hours p.r.n. 6. Colace 100 mg twice a day. 7. Doxycycline 100 mg p.o. twice a day, this was stopped on 08/12/2017. 8. Ferrous sulfate 325 mg p.o. with breakfast and supper. 9. Prozac 10 mg p.o. every morning. 10.Lasix 40 mg p.o. every morning. 11.Lactobacillus one capsule p.o. every morning. History And Physical [address] [address] NAME: QASIM ARREOLA APRIL : 30 STATUS : ADM IN [facility]#: [id number] AGE: 87 ADM/REG DATE : 08/16/17 MR#: [id number] REPORT SERV DATE: 08/16/17 DICTATED BY: NORMA TILLMAN DATE: 08/16/17 REPORT STATUS : Draft TRANSCRIBED BY: OLGA DATE: 08/16/17 12.Synthroid 175 mcg p.o. before breakfast. 13.Tradjenta 5 mg p.o. every morning. 14.Cytomel 5 mg p.o. twice a day. 15.Multivitamins with minerals one tablet every morning. 16.Omeprazole OTC 20 mg p.o. with breakfast and supper. 17.Oxycodone APAP 5/325 mg, 0.5 PO every six hours. 18.Zosyn 4.5 g IV every eight hours with stop date on 08/20/2017. 19.MiraLAX powder 17 g p.o. every morning. 20.Potassium chloride 20 mEq every morning. 21.Lyrica 75 mg p.o. at bedtime. 22.Altace 2.5 mg p.o. every 48 hours in the morning. 23.Requip 0.5 mg p.o. at bedtime. 24.Demadex 20 mg p.o. every morning. 25.Pro-Stat SF liquid 30 mL p.o. twice a day. 26.Biofreeze 4% gel application topically three times a day p.r.n. for pain. PAST MEDICAL HISTORY: To include: 1. History of TIA. 2. Hypertension. 3. Cardiomyopathy with EF of 35%/systolic congestive heart failure. 4. Osteoarthritis. 5. Hypothyroidism. 6. Type 2 diabetes. 7. History of MRSA bacteremia with infected defibrillator, which was subsequently removed. 8. Left hip replacement with infected hardware. 9. Generalized weakness/debility, chronic. 10.Anxiety and depression. 11.Failure to thrive. 12.Anemia secondary to chronic disease. PAST SURGICAL HISTORY: To include: 1. Bilateral hip replacement by Dr. Rivero at age 80, two years apart secondary to fall. 2. Right knee replacement. 3. Defibrillator placement around 2001 and subsequently removed in 2013, secondary to MRSA infection. 4. Cervical laminectomy on 12/02/[address] Tran. SOCIAL HISTORY: The patient is a current resident of [facility] since 02/2017. The patient with no history of smoking, alcohol, or illicit drug use. 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 FAMILY HISTORY: Positive for hypertension and congestive heart failure. REVIEW OF SYSTEMS: The patient denies any shortness of breath, chest pain, nausea, vomiting, or abdominal pain. She reports only bloody stool x1 last p.m. No complaint of worsened weakness. The patient's son at the bedside reports the patient is mainly bed-bound and occasionally will History And Physical [address] [address] NAME: QASIM ARREOLA APRIL : 30 STATUS : ADM IN [facility]#: [id number] AGE: 87 ADM/REG DATE : 08/16/17 MR#: [id number] REPORT SERV DATE: 08/16/17 DICTATED BY: NORMA TILLMAN DATE: 08/16/17 REPORT STATUS : Draft TRANSCRIBED BY: OLGA DATE: 08/16/17 be placed in a wheelchair for approximately three hours at [facility]. PHYSICAL EXAMINATION: VITAL SIGNS: Temperature of 97.6, pulse 73, respiratory rate 16, and BP of 107/51. GENERAL: The patient is a pleasant, chronically ill-appearing elderly female, in no acute distress noted. The patient is alert and oriented x1 to name. HEENT: Oral mucosa moist. Eyes, nonicteric bilaterally. NECK: No JVD noted or pain when palpated. CHEST: No chest deformity noted. LUNGS: Clear to auscultation bilaterally with symmetrical expansion and nasal cannula at 3 L O2. CV: Regular rate and rhythm. Normal S1, S2 noted. A 1/6 systolic ejection murmur, best heard over apical area. ABDOMEN: Soft, nontender. Positive bowel sounds x4 quadrants. No guarding. : The patient with an adult diaper in use. EXTREMITIES: No edema noted in bilateral upper and lower extremity. Noted right upper arm PICC line without redness or edema. Generalized muscle wasting and weakness. Generalized ecchymosis on bilateral upper extremity and lower extremity with chronic hyperpigmentation changes in bilateral lower extremities. IV THERAPY: Currently receiving blood transfusion with normal saline infusing at 125 mL/h. LABORATORY DATA: On 08/16/2017, WBC of 7.3, hemoglobin of 6.4, hematocrit 20.6, PT of 16.2, INR 1.3, PTT of 31.3, and platelet of 107. Sodium 142, potassium 4.1, chloride 99, CO2 of 39, BUN 50, creatinine of 0.83, GFR of 60, glucose of 142, AST 16, bili of 0.7, total protein of 5.7, and ALT of 15. ASSESSMENT AND PLAN: 1. Acute on chronic anemia, likely secondary to acute gastrointestinal bleed and positive Hemoccult. 2. Positive Hemoccult, likely secondary to acute lower gastrointestinal bleed. 3. Pseudomonas urinary tract infection, present on admission. 4. Right lower lobe community-acquired pneumonia, present on admission. 5. Chronic systolic congestive heart failure/cardiomyopathy without acute exacerbation. 6. Hypertension, primary, controlled. 7. Type 2 diabetes with neuropathy. 8. Chronic debility. 9. Anxiety and depression. 10.Hypothyroidism. 11.Restless legs syndrome. 12.History of failure to thrive and malnutrition. PLAN: 1. Consult GI for evaluation and treatment and assistance of acute GI bleed. The patient is currently completing one unit of packed red blood cell. Plan to repeat H and H per GI bleed protocol. We will check H and H q.6 h. If needed, we will give another blood transfusion if hemoglobin is less than 8.0. Continue to monitor respiratory rate and History And Physical [address] [address] NAME: QASIM ARREOLA APRIL : 30 STATUS : ADM IN [facility]#: [id number] AGE: 87 ADM/REG DATE : 08/16/17 MR#: [id number] REPORT SERV DATE: 08/16/17 DICTATED BY: PRIMONORMAGenevieve DATE: 08/16/17 REPORT STATUS : Draft TRANSCRIBED BY: OLGA DATE: 08/16/17 continue nasal cannula O2 for supportive measure. The patient is at risk for acute hypoxic or acute coronary syndrome. 2. We will place the patient on a clear liquid p.o. for now until GI evaluate. We will place the patient on IV Protonix q.12 h. We will continue to monitor H and H, and for any bloody stool. We will hold off on IV fluid after blood transfusion since the patient will be placed on p.o. diet. The patient is at risk for worsened GI bleed. 3. The patient is currently treated for Pseudomonas urinary tract infection and right lower lobe pneumonia with Zosyn. We will plan to continue Zosyn as scheduled for a total of seven days. We will monitor renal function. We will monitor vital signs and CBC. The patient's admission CBC is within normal limits. The patient is at risk for sepsis. We will refer to PICC line protocol for care. The patient is at risk for bacteremia. 4. The patient with history of chronic systolic congestive heart failure, we will continue home regimen of torsemide and monitor the patient's weight. Also, we will place the patient on fluid restriction of 1500 mL per day. The patient is at risk for acute exacerbation. 5. We will also closely monitor blood pressure. The patient with history of blood pressure, but given acute GI bleed, we will hold current home regimen of ALISHA inhibitor. The patient is at risk for hypotension. 6. The patient with history of diabetes. We will check Accu-Chek before meals and at bedtime. We will place on sliding scale insulin level [address] hypoglycemic protocol. If in case p.o. intake is poor, the patient is at risk for diabetic ketoacidosis or hypoglycemia. 7. We will continue frequent positional changes. The patient is at risk for further skin breakdown. We will place on sequential device for deep venous thrombosis prophylaxis. The patient is at risk for deep venous thrombosis formation. 8. Continue home regimen of Lyrica, hydrocodone for pain, Requip for restless legs syndrome, and hypothyroidism treatment. 9. Addressed code status with the patient's son, Norma Arreola, who is at the bedside. Completed POLST form and now placed in chart. 10.Discussed plan of care with the patient's son. Agree with current plan of care and GI consult. 11.Discharge plan, once the patient's medical condition improved and stabilized, we will plan to discharge back to [facility]. We will plan to refer the patient to Case Management. DICTATED BY: Charissa Rudolph NP CLP/MODL Norma Tillman M.D. / [id number] CC: History And Physical [address] [address] NAME: QASIM ARREOLA APRIL : 30 STATUS : ADM IN [facility]#: [id number] AGE: 87 ADM/REG DATE : 08/16/17 MR#: [id number] REPORT SERV DATE: 08/16/17 DICTATED BY: NORMA TILLMAN DATE: 08/16/17 REPORT STATUS : Draft TRANSCRIBED BY: MODL DATE: 08/16/17 Norma Tillman M.D.
[~2017-08-16 05:30] MED LIST changes: +8 HOUR650 MG PO; +ACIDOPHILU2 PO; +BIOFREEZE GEL TOP; +DSS PO; +FERROUS SULF325 M1 PO; +LEVOTHYROXIN150 MCG PO; +MIRALAX POWDER1 PKT PO; +MULTIVITAMI1 PO; +REQUIP5 PO; +SODCLTAB PO; +ULTRAM50 PO; +V2 PO
[2017-08-16 06:15] LABS: BASOPHILS 0.5 %; BASOPHILS ABSOLUTE 0.04 10/3/uL (0.0-0.16); EOSINOPHILS 7.7 %; EOSINOPHILS ABSOLUTE 0.56 10/3/uL (0.0-0.53); ER CBC TAT 0 Hrs 05 Mins; IMMATURE GRANULOCYTES 0.3 %; IMMATURE GRANULOCYTES ABSOLUTE 0.02 10/3/uL (0.0-0.11); LYMPHOCYTES 17.6 %; LYMPHOCYTES ABSOLUTE 1.29 10/3/uL (0.67-4.30); MEAN CORPUS HGB CONC 31.1 g/dL (32.0-36.0); MEAN CORPUSCULAR HEMOGLOB 27.8 pg (26.0-34.0); MEAN CORPUSCULAR VOLUME 89.6 fL (80-100); MEAN PLATELET VOLUME 9.2 fL (9.2-13.0); MONOCYTES 7.7 %; MONOCYTES ABSOLUTE 0.56 10/3/uL (0.21-1.20); NEUTROPHILS 66.2 %; NEUTROPHILS ABSOLUTE 4.85 10/3/uL (2.02-8.40); PLATELET COUNT 107 10/3/uL (150-400); RBC DISTRIBUTION WIDTH 17.9 % (12.0-16.0); WHITE BLOOD CELLS 7.3 10/3/uL (4.5-10.5)
[2017-08-16 06:21] LABS: INTERNATIONAL NORMAL RATI 1.3 UNITS (-); PROTIME (NOT ORD) 16.2 SEC (12.0-14.5)
[2017-08-16 06:22] LABS: PARTIAL THROMBO TIME 31.3 SEC (22.5-37.2)
[2017-08-16 06:25] LABS: HEMATOCRIT 20.6 % (36.0-48.0); HEMOGLOBIN 6.4 g/dL (12.0-16.0)
[2017-08-16 06:26] LABS: MANUAL DIFF NO %
[2017-08-16 06:33] LABS: A/G RATIO 0.9 (0.7-1.9); ALBUMIN 2.7 G/DL (3.5-5.0); CALCIUM, SERUM 8.5 MG/DL (8.5-10.4); CO2 (CARBON DIOXIDE) 39 MMOL/L (24-34); CREATININE 0.83 MG/DL (0.55-1.02); GFR AFRICAN AMERICAN 73 ML/MIN (>=60); GFR NON AFRICAN AMERICAN 63 ML/MIN (>=60); POTASSIUM, SERUM 4.1 MMOL/L (3.5-5.3); SGOT(AST) 16 U/L (5-40); SGPT(ALT) 15 U/L (5-65); TOTAL BILIRUBIN 0.7 MG/DL (0-1.2); TOTAL PROTEIN 5.7 G/DL (6.0-8.5)
[2017-08-16 06:34] LABS: ALKALINE PHOSPHATASE 86 U/L (45-117); BUN (BLOOD UREA NITROGEN) 50 MG/DL (6-23); CHLORIDE, SERUM 99 MMOL/L (96-112); GLUCOSE, SERUM 142 MG/DL (60-99); SODIUM, SERUM 143 MMOL/L (135-148)
[2017-08-16] MEDS ORDERED: CALTRA600D PO (09:10)
[2017-08-16] MEDS ORDERED: ROCEPH IM (09:10)
[2017-08-16] MEDS ORDERED: LYRICA75 PO (09:11)
[2017-08-16] MEDS ORDERED: PRILOSEC OTC20 MG PO (09:11)
[2017-08-16] MEDS ORDERED: REQUIP5 PO (09:11)
[2017-08-16] MEDS ORDERED: P20 PO (09:12)
[2017-08-16] MEDS ORDERED: ZOSYN4.5 IV (09:13)
[2017-08-16] MEDS ORDERED: ENDOCET1 TAB PO (09:14)
[2017-08-16] MEDS ORDERED: FERROUS SULF325 M1 PO (09:14)
[2017-08-16] MEDS ORDERED: DSS PO (09:15)
[2017-08-16] MEDS ORDERED: SYNTHROID175 MCG PO (09:15)
[2017-08-16] MEDS ORDERED: [UNRECOGNIZED DRUG - OTHER] PO (09:16)
[2017-08-16] MEDS ORDERED: CYTO5 PO (09:16)
[2017-08-16] MEDS ORDERED: CEFT2 PO (09:17)
[2017-08-16] MEDS ORDERED: MONODOX100 MG PO (09:17)
[2017-08-16] MEDS ORDERED: ASAB PO (09:18)
[2017-08-16] MEDS ORDERED: VITAMIN D2000 UNIT PO (09:18)
[2017-08-16] MEDS ORDERED: PROZ10 PO (09:19)
[2017-08-16] MEDS ORDERED: MULTIVIT/MIN PO (09:19)
[2017-08-16] MEDS ORDERED: TRADJENTA5 MG PO (09:19)
[2017-08-16] MEDS ORDERED: MIRALAX POWDER1 PKT PO (09:19)
[2017-08-16] MEDS ORDERED: KLOR-CON M2020 MEQ PO (09:20)
[2017-08-16] MEDS ORDERED: L40 PO (09:21)
[2017-08-16] MEDS ORDERED: DEMA20 PO (09:21)
[2017-08-16] MEDS ORDERED: ALTA2.5 PO (09:22)
[2017-08-16] MEDS ORDERED: ACIDOPHILU2 PO (09:22)
[2017-08-16] MEDS ORDERED: V2 PO (09:23)
[2017-08-16] MEDS ORDERED: BIOFREEZE 4% TOP (09:24)
[2017-08-16] MEDS ORDERED: ALBUTEROL0.083 % INH (09:24)
[2017-08-16 14:38] LABS: HEMOGLOBIN 7.6 g/dL (12.0-16.0)
[2017-08-16 14:39] LABS: HEMATOCRIT 23.5 % (36.0-48.0)
[2017-08-16 21:10] LABS: HEMOGLOBIN 7.3 g/dL (12.0-16.0)
[2017-08-17 02:24] LABS: MEAN CORPUS HGB CONC 31.4 g/dL (32.0-36.0); MEAN CORPUSCULAR HEMOGLOB 28.1 pg (26.0-34.0); MEAN CORPUSCULAR VOLUME 89.4 fL (80-100); MEAN PLATELET VOLUME 9.2 fL (9.2-13.0); PLATELET COUNT 103 10/3/uL (150-400); RBC DISTRIBUTION WIDTH 17.5 % (12.0-16.0); RED CELL COUNT 2.35 10/6/uL (4.0-5.6)
[2017-08-17 02:28] LABS: HEMOGLOBIN 6.6 g/dL (12.0-16.0)
[2017-08-17 02:30] LABS: MANUAL DIFF NO %
[2017-08-17 02:37] LABS: CALCIUM, SERUM 8.5 MG/DL (8.5-10.4); CHLORIDE, SERUM 102 MMOL/L (96-112); CO2 (CARBON DIOXIDE) 38 MMOL/L (24-34); CREATININE 0.77 MG/DL (0.55-1.02); GFR AFRICAN AMERICAN 80 ML/MIN (>=60); GFR NON AFRICAN AMERICAN 69 ML/MIN (>=60); POTASSIUM, SERUM 3.5 MMOL/L (3.5-5.3); SODIUM, SERUM 146 MMOL/L (135-148)
[2017-08-17 02:38] LABS: BUN (BLOOD UREA NITROGEN) 46 MG/DL (6-23); GLUCOSE, SERUM 96 MG/DL (60-99)
[2017-08-17 08:26] LABS: HEMATOCRIT 28.5 % (36.0-48.0); HEMOGLOBIN 9.1 g/dL (12.0-16.0)
[2017-08-17 15:42] LABS: HEMOGLOBIN 9.6 g/dL (12.0-16.0)
[2017-08-17 20:13] LABS: HEMOGLOBIN 8.3 g/dL (12.0-16.0)
[2017-08-18 02:53] LABS: HEMATOCRIT 24.7 % (36.0-48.0); HEMOGLOBIN 7.8 g/dL (12.0-16.0)
[2017-08-18 09:15] LABS: HEMATOCRIT 24.8 % (36.0-48.0); HEMOGLOBIN 7.7 g/dL (12.0-16.0)
[2017-08-18 15:13] LABS: HEMOGLOBIN 8.4 g/dL (12.0-16.0)
[2017-08-18 23:05] LABS: HEMOGLOBIN 7.4 g/dL (12.0-16.0)
[2017-08-18 23:07] LABS: HEMATOCRIT 23.6 % (36.0-48.0)
[2017-08-19 05:41] LABS: BASOPHILS 0.5 %; BASOPHILS ABSOLUTE 0.04 10/3/uL (0.0-0.16); EOSINOPHILS 9.3 %; EOSINOPHILS ABSOLUTE 0.69 10/3/uL (0.0-0.53); HEMOGLOBIN 7.8 g/dL (12.0-16.0); IMMATURE GRANULOCYTES 0.3 %; IMMATURE GRANULOCYTES ABSOLUTE 0.02 10/3/uL (0.0-0.11); LYMPHOCYTES 16.1 %; LYMPHOCYTES ABSOLUTE 1.19 10/3/uL (0.67-4.30); MEAN CORPUS HGB CONC 31.2 g/dL (32.0-36.0); MEAN CORPUSCULAR HEMOGLOB 28.7 pg (26.0-34.0); MEAN CORPUSCULAR VOLUME 91.9 fL (80-100); MEAN PLATELET VOLUME 9.9 fL (9.2-13.0); MONOCYTES 8.4 %; MONOCYTES ABSOLUTE 0.62 10/3/uL (0.21-1.20); NEUTROPHILS 65.4 %; NEUTROPHILS ABSOLUTE 4.85 10/3/uL (2.02-8.40); PLATELET COUNT 106 10/3/uL (150-400); RBC DISTRIBUTION WIDTH 17.8 % (12.0-16.0); RED CELL COUNT 2.72 10/6/uL (4.0-5.6); WHITE BLOOD CELLS 7.4 10/3/uL (4.5-10.5)
[2017-08-19 05:44] LABS: MANUAL DIFF NO %
[2017-08-19 05:53] LABS: CALCIUM, SERUM 8.2 MG/DL (8.5-10.4); CHLORIDE, SERUM 102 MMOL/L (96-112); CREATININE 1.02 MG/DL (0.55-1.02); GFR AFRICAN AMERICAN 57 ML/MIN (>=60); GFR NON AFRICAN AMERICAN 49 ML/MIN (>=60); GLUCOSE, SERUM 104 MG/DL (60-99); POTASSIUM, SERUM 3.1 MMOL/L (3.5-5.3); SODIUM, SERUM 142 MMOL/L (135-148)
[2017-08-19 05:55] LABS: BUN (BLOOD UREA NITROGEN) 29 MG/DL (6-23); CO2 (CARBON DIOXIDE) 32 MMOL/L (24-34)
[2017-08-19 12:05] LABS: HEMATOCRIT 26.8 % (36.0-48.0); HEMOGLOBIN 8.3 g/dL (12.0-16.0)
== END 2017-08-19 14:10 | DRG 377 ==
LOC: ER 05:30 → 7NO 07:29
PROVIDERS: Family Medicine; Internal Medicine Gastroenterology; Nurse Practitioner Family; Specialist
PROC: 30233N1 Transfusion of Nonautologous Red Blood Cells into Peripheral Vein, Percutaneous Approach (ICD-10-PCS; 2017-08-16)
PROC: 0D598ZZ Destruction of Duodenum, Via Natural or Artificial Opening Endoscopic (ICD-10-PCS; 2017-08-17)
PROC: 0D568ZZ Destruction of Stomach, Via Natural or Artificial Opening Endoscopic (ICD-10-PCS; principal; 2017-08-17 17:29)
DX: K31.811 Angiodysplasia of stomach and duodenum with bleeding (principal); J18.9 Pneumonia, unspecified organism; I11.0 Hypertensive heart disease with heart failure; E11.40 Type 2 diabetes mellitus with diabetic neuropathy, unspecified; I42.9 Cardiomyopathy, unspecified; I50.22 Chronic systolic (congestive) heart failure; D62 Acute posthemorrhagic anemia; N39.0 Urinary tract infection, site not specified; D63.8 Anemia in other chronic diseases classified elsewhere; K21.0 Gastro-esophageal reflux disease with esophagitis; F41.9 Anxiety disorder, unspecified; B96.5 Pseudomonas (aeruginosa) (mallei) (pseudomallei) as the cause of diseases classified elsewhere; E87.6 Hypokalemia; R62.7 Adult failure to thrive; M19.90 Unspecified osteoarthritis, unspecified site; Z88.2 Allergy status to sulfonamides; Z66 Do not resuscitate; Z79.82 Long term (current) use of aspirin; Z86.73 Personal history of transient ischemic attack (TIA), and cerebral infarction without residual deficits; Z86.14 Personal history of Methicillin resistant Staphylococcus aureus infection; Z96.643 Presence of artificial hip joint, bilateral; Z96.651 Presence of right artificial knee joint
CPT/HCPCS: 36415; 71010; 80048; 80053; 82962; 85014; 85018; 85025; 85610; 85730; 86850; 86900; 86901; 86920; 87040; 93005; 96365; 96375; 99285; A9270-GY; C9113; J1940; J2543; P9016